=== PATIENT | male | born 1990 | race African-American/Black ===

== ENCOUNTER 2017-12-08 18:57 | Emergency (ER) | payer MEDICARE, MEDICAID ==
--- NOTE | 2017-12-08 20:01 | ED Physician Documentation ---
PD HPI LOWER EXT INJURY - Stated complaint Stated Complaint: GLF - KNEE PX - Chief complaint Chief Complaint: Ext Problem - History obtained from History obtained from: Patient - History of Present Illness PD HPI LOW EXT INJURY LOCATION: Left, Knee Type of injury: Fall (he tripped and fell, falls often per caregiver with him. Has CP and antalgic gait. Today fell and landed onto left knee, with pain and swelling. Denies other injury) Timing - onset: Today Timing - details: Abrupt onset, Still present Worsened by: Moving, Palpating Associated symptoms: Swelling. No: Weakness, Numbness Similar symptoms before: Has not had sx before Recently seen: Not recently seen Review of Systems Constitutional: denies: Fever, Chills Nose: denies: Rhinorrhea / runny nose, Congestion Throat: denies: Sore throat Cardiac: denies: Chest pain / pressure Respiratory: denies: Cough GI: denies: Abdominal Pain Neurologic: denies: Focal weakness, Numbness, Headache, Head injury PD PAST MEDICAL HISTORY - Past Medical History Past Medical History: Yes Neuro: Head injury - Past Surgical History Past Surgical History: Yes - Present Medications Home Medications: Ambulatory Orders Medication Instructions Recorded Confirmed Baclofen [Baclofen] 30 mg PO BID 12/08/17 12/08/17 - Allergies Allergies/Adverse Reactions: Allergies Allergy/AdvReac Type Severity Reaction Status Date / Time No Known Drug Allergies Allergy Verified 12/08/17 19:15 - Social History Does the pt smoke?: No Smoking Status: Never smoker Does the pt drink ETOH?: No Does the pt have substance abuse?: No PD ED PE NORMAL - Vitals Vital signs reviewed: Yes - General General: Alert and oriented X 3, No acute distress, Well developed/nourished - HEENT HEENT: Atraumatic - Respiratory Respiratory: Other (no chestwall tenderness) - Abdomen Abdomen: Soft, Non tender - Derm Derm: Normal color, Warm and dry - Extremities Extremities: Other (left knee with tenderness anteriorly and moderate effusion. No gross laxity with stress testing but limited. ) - Neuro Neuro: Alert and oriented X 3, No motor deficit, No sensory deficit Results - Vitals Vitals: Oxygen O2 Source Room air - Rads (name of study) left knee Radiology: Prelim report reviewed, EMP read contemporaneously (no fractures) PD MEDICAL DECISION MAKING - ED course Complexity details: considered differential (has effusion on left knee. He says mostly direct impact with fall and has okay xray. No gross laxity with stress testing but limited. COnsider some ligament injury too. Knee immobilizer had it feel better. ), d/w patient Departure - Departure Disposition: 01 Home, Self Care Clinical Impression: Knee effusion, left Accidental fall Qualifiers: Encounter type: initial encounter Qualified Code(s): W19.XXXA - Unspecified fall, initial encounter Knee contusion Qualifiers: Encounter type: initial encounter Laterality: left Qualified Code(s): S80.02XA - Contusion of left knee, initial encounter Condition: Stable Record reviewed to determine appropriate education?: Yes Instructions: ED Contusion Lower Ext, ED Effusion Knee Follow-Up: Lin Green PA-C [Primary Care Provider] - Comments: Use a knee brace when up and around for the next week until much better. Ibuprofen 400-600 mg 3 times a day for the next week, take it with food. Add Tylenol if needed for pain. The swelling in the knee should go down over several days and improve the pain quite a bit. Recheck if not better in about a week's time. There are no signs of fractures on the x-ray. There may be some ligamentous or muscle strain along with the bruising and they should be improved with the knee brace as well. Discharge Date/Time: 12/08/17 21:45
[2017-12-08] MEDS ORDERED: ACETAMINOPHEN 325 MG TABLET PO STA (20:11)
[2017-12-08 20:53] VITALS: BP 116/77
--- NOTE | 2017-12-08 20:54 | XRAY Report ---
EXAM: LEFT KNEE RADIOGRAPHY EXAM DATE: 12/08/2017 08:36 PM. CLINICAL HISTORY: Fall onto left knee, effusion and pain. COMPARISON: None. TECHNIQUE: 4 views. FINDINGS: Bones: Normal. No fractures or bone lesions. Joints: Normal. No effusion. No subluxations. Soft Tissues: Normal. No soft tissue swelling. IMPRESSION: Normal knee radiography. [facility] Referring Provider Line: [phone] SITE ID: [id number]
--- NOTE | 2017-12-08 20:54 | XRAY Preliminary Report ---
Exam: XR KNEE 4 VIEW LT IMPRESSION: Normal knee radiography. [facility] SITE ID: [id number]
== END 2017-12-08 21:45 | disposition home or self-care (01) ==
LOC: ED 18:57
DX: M25.462 Effusion, left knee (principal); S80.02XA Contusion of left knee, initial encounter; W01.0XXA Fall on same level from slipping, tripping and stumbling without subsequent striking against object, initial encounter
CPT/HCPCS: 73564; 99283; A9270

== ENCOUNTER 2019-05-20 11:09 | Outpatient (CLI) | payer MEDICARE, MEDICAID | END 2019-05-20 11:10 | disposition critical access hospital (66) | LOC: EMS 11:09 | PROVIDERS: ATTEND Surgery | DX: M25.511 Pain in right shoulder (principal); W03.XXXA Other fall on same level due to collision with another person, initial encounter; Y92.480 Sidewalk as the place of occurrence of the external cause | CPT/HCPCS: A0425; A0427 ==

== ENCOUNTER 2019-05-20 11:30 | Emergency (ER) | payer MEDICARE, MEDICAID ==
[2019-05-20] MEDS ORDERED: ONDANSETRON 4 MG/2 ML VIAL IVP STA (11:44)
[2019-05-20] MEDS ORDERED: HYDROmorphone 1 MG/ML CARPUJECT IVP STA (11:44)
[2019-05-20] MEDS ORDERED: PROPOFOL 200 MG/20 ML VIAL IVP ONE (12:26)
--- NOTE | 2019-05-20 12:58 | XRAY Report ---
Reason: dislocation Procedure Date: 05/20/2019 Accession Number: [id number] / [id number] Procedure: XR - Shoulder 3 View RT CPT Code: FULL RESULT: EXAM: RIGHT SHOULDER RADIOGRAPHY EXAM DATE: 05/20/2019 12:14 PM. CLINICAL HISTORY: Dislocation. Fall today, right shoulder pain. COMPARISON: None. TECHNIQUE: 3 views. FINDINGS: Bones/joints: There is anterior/inferior dislocation of the humeral head relative to the glenoid. Acromioclavicular joint alignment is within normal limits. There is an acute displaced fracture of the greater tuberosity of the humerus. Lateral displacement of the tuberosity fracture fragment measures 2.0 cm. The other visualized bones appear intact. No bone lesion. Soft tissues: The visualized hemithorax is unremarkable. There is soft tissue swelling adjacent to the proximal humerus. IMPRESSION: 1. Anterior/inferior dislocation of the humeral head relative to the glenoid. 2. Acute displaced fracture of the greater tuberosity of the humerus. [facility]
[2019-05-20] MEDS ORDERED: PROPOFOL 200 MG/20 ML VIAL IVP STA (13:16)
--- NOTE | 2019-05-20 13:25 | ED Physician Documentation ---
PD HPI UPPER EXT INJURY - Stated complaint Stated Complaint: GLF - Chief complaint Chief Complaint: Ext Problem - History obtained from History obtained from: Patient, Family - History of Present Illness Location: Right, Shoulder Type of injury: Fall Where injury occurred: Other ([employer]) Timing - onset: Today Timing - duration: Hours Timing - details: Abrupt onset, Still present Improved by: Rest, Immobilization Worsened by: Moving, Palpating Associated symptoms: No: Weakness, Numbness, Tingling Contributing factors: No: Anticoagulated Similar symptoms before: Has not had sx before Recently seen: Not recently seen - Additonal information Additional information: 28-year-old male with a remote history of TBI with left-sided spasticity was at a [employer] today when another student bumped into him and he fell. He fell onto his right hand and he complains of pain in his right shoulder. He has severe pain in his deformity consistent with dislocation. He has not had shoulder dislocation previously. Review of Systems Constitutional: denies: Fever Eyes: denies: Decreased vision Ears: denies: Ear pain Nose: denies: Rhinorrhea / runny nose, Congestion Respiratory: denies: Cough GI: denies: Vomiting PD PAST MEDICAL HISTORY - Past Medical History Past Medical History: Yes Neuro: Other Other Past Medical History: TBI - Past Surgical History Past Surgical History: Yes - Present Medications Home Medications: Ambulatory Orders Medication Instructions Recorded Confirmed Hydrocodone/Acetaminophen 1 - 2 each PO Q6H PRN #14 tablet 05/20/19 [Hydrocodon-Acetaminophen 5-325] - Allergies Allergies/Adverse Reactions: Allergies Allergy/AdvReac Type Severity Reaction Status Date / Time No Known Drug Allergies Allergy Verified 05/20/19 11:39 - Social History Does the pt smoke?: No Smoking Status: Never smoker Does the pt drink ETOH?: No Does the pt have substance abuse?: No - Immunizations Immunizations are current?: Yes PD ED PE NORMAL - Vitals Vital signs reviewed: Yes (hypertensive ) - General General: Well developed/nourished, Other (anxious appearing male with dysarthric speech) - HEENT HEENT: Atraumatic, PERRL, EOMI - Neck Neck: Supple, no meningeal sign, No bony TTP - Cardiac Cardiac: RRR, No murmur - Respiratory Respiratory: No respiratory distress, Clear bilaterally - Abdomen Abdomen: Soft, Non tender - Back Back: No CVA TTP, No spinal TTP - Derm Derm: Normal color, Warm and dry, No rash - Extremities Extremities: Other (There is deformity to the right shoulder consistent with dislocation and there is significant pain with any movement ) - Neuro Neuro: Other (There is existing contracture of the left upper extremity consistent with the left sided deficit indicated by his history. There is mildly dysarthric speech. ) Eye Opening: Spontaneous Motor: Obeys Commands Verbal: Oriented GCS Score: 15 - Psych Psych: Normal mood, Normal affect Results - Vitals Vitals: Vital Signs - 24 hr 05/20/19 05/20/19 05/20/19 11:34 12:35 12:36 Heart Rate 65 63 99 Respiratory 17 19 28 H Rate Blood Pressure 138/83 H 115/79 O2 Saturation 96 100 05/20/19 05/20/19 05/20/19 12:51 13:20 13:40 Heart Rate 102 H 86 70 Respiratory 15 22 17 Rate Blood Pressure 121/90 H 119/84 H 113/78 O2 Saturation 99 98 100 Oxygen O2 Source Room air - Rads (name of study) shoulder Radiology: Prelim report reviewed (Pressure: 1. Anterior/inferior dislocation of the humeral head relative to the glenoid. 2. Acute displaced fracture of the greater tuberosity of the humerus.), EMP read indepedently, See rad report shouder post reduction Radiology: EMP read contemporaneously (the joint is reduced and the fracture has improved alignment. ) Procedures - Reduction Body part reduced: Right, Shoulder Fracture or dislocation: Fracture dislocation Anesthesia: Dilaudid, Propofol Shoulder reduction technique: Traction - counter tract Reduction aftercare: NV intact, Xray confirms reduction, Sling, Patient tolerated well - Procedural sedation Sedation prep: Informed consent, Time out completed, PE performed, AHA 2 - mild disease, IV O2 monitor, ET CO2 monitor, RT present, Other (JEANIE Johnson present) Sedation medications: dilaudid, propofol (60mg) Patient status during sedation: Unresponsive, Vitals remained stable, Respiratory depression, Needed resp assistance. No: Hypoxia Sedation recovery: Recovered uneventfully, Back to baseline Time in sedation (Minutes): 8 (low dose with 60mg patient heavily sedated. ) PD MEDICAL DECISION MAKING - ED course Complexity details: reviewed old records, reviewed results, re-evaluated patient, considered differential, d/w patient, d/w family ED course: 28-year-old male with a prior history of TBI has had a fracture dislocation of his right shoulder we have been able to reduce it here in the emergency department with use of propofol after the administration of Dilaudid. The patient required a small dose of propofol and had deep sedation. He recovered and uneventfully and family will ensure follow-up with orthopedics.We did discuss the need to remove his arm from the sling frequently during the day for range of motion. Departure - Departure Disposition: 01 Home, Self Care Clinical Impression: Fracture dislocation of right shoulder joint Qualifiers: Encounter type: initial encounter Fracture type: closed Qualified Code(s): S42.91XA - Fracture of right shoulder girdle, part unspecified, initial encounter for closed fracture Condition: Stable Instructions: ED Dislocation Shoulder Redu, ED Fx Shoulder Follow-Up: [facility] [Provider Group] Prescriptions: Hydrocodone/Acetaminophen [Hydrocodon-Acetaminophen 5-325] 1 - 2 each PO Q6H PRN #14 tablet PRN Reason: pain Discharge Date/Time: 05/20/19 14:00
[2019-05-20 13:41] VITALS: BP 113/78
--- NOTE | 2019-05-21 07:29 | XRAY Report ---
Reason: post reduction Procedure Date: 05/20/2019 Accession Number: [id number] / [id number] Procedure: XR - Shoulder 2 View RT CPT Code: FULL RESULT: EXAM: RIGHT SHOULDER RADIOGRAPHY EXAM DATE: 05/20/2019 01:12 PM. CLINICAL HISTORY: Post reduction. COMPARISON: SHOULDER 3 VIEW RT 05/20/2019 11:48 AM. TECHNIQUE: 2 views. FINDINGS: Bones: Hill-Sachs fracture with improved alignment Joints: Interval reduction Soft tissues: The visualized hemithorax is unremarkable. No soft tissue swelling. IMPRESSION: 1. Interval reduction of shoulder dislocation. 2. Hill-Sachs fracture with improved alignment [facility]
== END 2019-05-20 14:00 | disposition home or self-care (01) ==
LOC: EDBD → ED 11:30
DX: S42.251A Displaced fracture of greater tuberosity of right humerus, initial encounter for closed fracture (principal); S43.014A Anterior dislocation of right humerus, initial encounter; W03.XXXA Other fall on same level due to collision with another person, initial encounter; Y92.833 Campsite as the place of occurrence of the external cause; Z87.820 Personal history of traumatic brain injury; R47.1 Dysarthria and anarthria; R25.2 Cramp and spasm
CPT/HCPCS: 23650; 73030; 94770; 96374; 99283; 99284; J1170

== ENCOUNTER 2019-06-04 | Emergency (ER) | payer MEDICARE, MEDICAID | END 2019-06-04 15:07 | disposition home or self-care (01) | DX: S01.01XA Laceration without foreign body of scalp, initial encounter (principal); W01.198A Fall on same level from slipping, tripping and stumbling with subsequent striking against other object, initial encounter; Y92.481 Parking lot as the place of occurrence of the external cause; Z23 Encounter for immunization; Z87.820 Personal history of traumatic brain injury | CPT/HCPCS: 12002; 90471; 90715; 99282; 99283; A9270 ==

== ENCOUNTER 2019-06-04 13:12 | Outpatient (CLI) | payer MEDICARE, MEDICAID | END 2019-06-04 13:13 | disposition EMS.NT | LOC: EMS 13:12 | PROVIDERS: ATTEND Surgery | DX: S01.01XA Laceration without foreign body of scalp, initial encounter (principal); W18.39XA Other fall on same level, initial encounter; W22.8XXA Striking against or struck by other objects, initial encounter; Y92.414 Local residential or business street as the place of occurrence of the external cause ==

== ENCOUNTER 2023-09-20 14:49 | Outpatient (CLI) | payer MEDICARE, MEDICAID ==
--- NOTE | 2023-09-20 15:39 | Sleep Patient Instructions ---
Sleep Center Visit Summary - Patient Visit Information Reason for Visit: Initial consult for evaluation of sleep disordered breathing and other sleep issues. - Patient Instructions Instructions Attached: Sleep Study, Sleep Study Home Monitor Additional Instructions: You will be completing a sleep study, either an in-lab polysomnography (PSG) or home sleep study (HST). You will follow-up in the sleep care office after the sleep study is completed to hear the results and talk about therapy, if needed. You will be called by our office staff to schedule this appointment, but you may contact us with any questions. - Clinic Information Contact: [facility] [address] [place] [id number] [email or web address] T: [phone]
--- NOTE | 2023-09-20 15:48 | SLEEP CARE CONSULTATION ---
Information from patient questionnaire entered by Katiana Laird. I have reviewed and concur with the information entered by Katiana Laird. This document represents the service I personally performed and the decisions made by me, Chary Singh ARNP. History of Present Illness Service Date and Time: 09/20/2023 1449 Reason for Visit: New patient Accompanied by: SANDRO Flaherty Chief Complaint: reports: Insomnia, Unrefreshed sleep, Snoring, Excessive daytime sleepiness, Frequent awakenings at night Date of Onset: YRS Usual bedtime: 11PM Time it takes to fall asleep: 1HR Snores at night: Yes Observed to quit breathing while asleep: No Number of times waking at night: 2-3 Reasons for waking at night: reports: Snoring, Pain, Bathroom, Other (NOISE). denies: Choking, Gasping for air Toss, Turn, or Twitch while sleeping: No Recalls having dreams: Yes Feels refreshed in the morning: No Morning headache: No Sleepy or fatigued during the day: Yes Ever fallen asleep while driving: No (N/A, he does not drive) Takes day naps: No Dreams during day naps: No Prior sleep studies: No Additional HPI information: I had the pleasure of seeing GLENN ANGEL (GENO) today regarding the possibility of him having a sleep disorder. His current complaints are insomnia, unrefreshed sleep, snoring, excessive daytime sleepiness and frequent night awakenings. He is accompanied by his mother, Krystina JO. She says two years ago he moved back home and is sharing a bedroom with another brother. His brother complains of his loud snoring and is waking up a lot at night. He had a TBI when he was [age] years old and he sees a neurologist regularly. His mother says he has told her now that he does not wake up feeling rested and is tired a lot. He is usually very busy but if he sits still he will fall asleep. He is a light sleeper and noises will wake him up easily. 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 Patient is Single and lives in [place]. Have you smoked in the past 12 months: No Alcohol use: No Caffeine use: No Family History Family history of sleep disordered breathing: No (unknown) Allergies and Home Medications Known drug allergies: No Drug allergies reviewed: Yes Home medication list reviewed: Yes Allergy and home medication list: Allergies No Known Drug Allergies Allergy (Verified 09/19/23 15:45) Home Medications Medication Instructions Recorded Confirmed Last Taken Type Calcium Carbonate [Calcium] See Rx Instructions .ROUTE .COMPLEX 09/20/23 09/20/23 Unknown History Cholecalciferol (Vitamin D3) See Rx Instructions .ROUTE .COMPLEX 09/20/23 09/20/23 Unknown History [Vitamin D3] Multivitamin See Rx Instructions .ROUTE .COMPLEX 09/20/23 09/20/23 Unknown History Review of Systems Weight gain over past 5 years: 5+ Cardiovascular: denies: high blood pressure Respiratory: denies: shortness of breath Gastrointestinal: denies: heartburn Neurological: reports: head trauma, gait or balance problems. denies: headaches Psychiatric: denies: anxiety, depression Ear/Nose/Throat: reports: tonsillectomy, wisdom teeth removed Musculoskeletal: reports: joint pain, neck pain, back pain, mobility problems Physical Exam Vital signs obtained and entered by: KATIANA Hicks MA Blood Pressure: 124/72 (LEFT ARM) Cuff size: regular Heart Rate: 75 O2 Saturation: 97 Height: 5 ft 2 in Weight: 117 lb 12.8 oz (with clothes/shoes) Body Mass Index: 21.5 BMI Classification: Normal Neck circumference: 14.25 Mouth and throat: narrow oropharynx Soft palate: long Hard palate: normal Uvula: normal Uvula visualization: 0% Mallampati Class IV Tongue: enlarged in size with teeth chung on lateral edges Tonsils: absent bilaterally Neck: normal w/o lymphadenopathy or thyromegaly Heart: regular rate and rhythm Lungs: clear bilaterally Impression and Plan 1. Suspected Obstructive Sleep Apnea-Hypopnea Syndrome, as suggested by a history of loud and irregular snoring, frequent awakening during the night, unrefreshed sleep and cognitive impairment. He history of TBI at age 75 years old. His mother and power of prosecuting attorney accompanied to his visit today but he understands and responds well to questioning. He does not get anxious in new situations and is comfortable with healthcare situations. He used to live on his own with a roommate and caregiver for 12 years. He does not need assistance to the restroom or to take any medications. He is mother, Krystina, says she can come in and help him to get settled and will be there to pick him up in the morning. She only lives 5 minutes from the sleep lab. Narrow oropharynx and obesity are common predisposing factors for obstructive sleep apnea-hypopnea syndrome. I recommend proceeding to polysomnography to confirm the diagnosis and to assess severity. If the patient has significant sleep disordered breathing, a manual CPAP titration study will also be performed to find the optimal treatment pressure. I informed the patient of what the sleep studies involve and after some discussion, obtained agreement to proceed from both patient and his POA. The pathophysiology of obstructive sleep apnea-hypopnea syndrome was discussed with the patient and health risks of cardiovascular and cerebrovascular disease if not treated. Risks of drowsy driving discussed in detail and patient advised to avoid long distance driving and to machine puller over at the first sign of drowsiness. Patient agreed to plan. * Schedule polysomnography. * Avoid long distance driving or driving when feeling sleepy. * Avoid alcohol, sedative and muscle relaxant around bedtime. * Review instructions provided by trained office staff on how to prepare for the sleep study. * Return for follow-up after sleep study completed. Plan: PSG Visit Type: In Office Time Spent with Patient (minutes): 44 Provider Statement: I spent 100% of the Face to Face Visit with the patient with greater than 50% spent counseling the patient and coordination of care.
[2023-09-20 16:02] VITALS: BP 124/72; O2SAT 97
== END 2023-09-20 14:50 | disposition home or self-care (01) ==
LOC: SC 14:49
PROVIDERS: ATTEND Nurse Practitioner Family
DX: G47.8 Other sleep disorders (principal); R06.83 Snoring; R41.89 Other symptoms and signs involving cognitive functions and awareness; Z87.820 Personal history of traumatic brain injury
CPT/HCPCS: 99203; G0463; 99212

== ENCOUNTER 2023-09-23 19:44 | Outpatient (CLI) | payer MEDICARE, MEDICAID | END 2023-09-23 19:45 | disposition home or self-care (01) | LOC: SC 19:44 | PROVIDERS: ATTEND Nurse Practitioner Family | DX: G47.8 Other sleep disorders (principal); R06.83 Snoring; R53.83 Other fatigue | CPT/HCPCS: 95810 ==

== ENCOUNTER 2023-10-11 10:01 | Outpatient (CLI) | payer MEDICARE, MEDICAID ==
--- NOTE | 2023-10-11 10:17 | Sleep Patient Instructions ---
Sleep Center Visit Summary - Patient Visit Information Reason for Visit: Sleep study follow-up - Patient Instructions Additional Instructions: Your sleep study today was negative for significant sleep disordered breathing. You were found to have episodes of snoring. There are different ways to control snoring including weight loss, oral devices made by a dentist or surgical options through ENT specialist. You should not use oral devices that do not fit properly because they can affect your bite. You should also check insurance coverage of oral devices for snoring because they may not be cover well. You may obtain a referral to an ENT specialist through your primary provider. Follow-up as needed. - Clinic Information Contact: [facility] [address] [place] [address] [email or web address] T: [phone]
--- NOTE | 2023-10-11 10:20 | SLEEP CARE CONSULTATION ---
Information from patient questionnaire entered by Katiana Laird. I have reviewed and concur with the information entered by Katiana Laird. This document represents the service I personally performed and the decisions made by , Chary Singh ARNP. History of Present Illness Service Date and Time: 10/11/2023 1001 Accompanied by: Mother SANDRO Initial [place] Sleepiness Scale score: 6 Current [place] Sleepiness Scale score: 8 (10/11/23) Additional HPI information: GLENN ANGEL JR returns with mother, Kyrstina, for follow up and results of the recently performed polysomnography. The patient was informed of the following findings: No significant sleep disordered breathing with an average AHI of 2.4 and alina oxygen saturation of 91%. I explained the pathophysiology behind obstructive sleep apnea. Patient does not have sleep apnea and was advised how weight gain could increase the risk of developing sleep apnea in the future. Patient has light snoring. Snoring can be treated with an oral appliance from a dentist. Advised to check insurance coverage. In addition, an ENT evaluation can be do to see if other treatment is indicated. Patient does not drink alcohol. Patient does not drive. Sleep Study - Results Type of Sleep Study: Polysomnography (COMPLETED 10/10/23) Prior sleep studies: No Polysomnography/Home Sleep Study results: IMPRESSION: The quality of the study is good. The patient had normal sleep efficiency. The sleep architecture was normal as well. Respiratory monitoring showed no significant sleep disordered breathing (AHI = 2.4) or hypoxia (alina oxygen saturation of 91%). The few respiratory events occurred mainly during REM sleep. The patient only slept supine during this study (supine AHI = 2.4; non-supine = 0.00). Snore was infrequent and light in intensity. There was no significant periodic leg movement of sleep. Cardiac rhythm was normal sinus rhythm without significant arrhythmia. No abnormal behavior (parasomnia) observed during the night. Allergies and Home Medications Known drug allergies: No Drug allergies reviewed: Yes Home medication list reviewed: Yes (no changes) Allergy and home medication list: Allergies No Known Drug Allergies Allergy (Verified 10/10/23 15:16) Review of Systems Review of systems same as previous: Yes (NO CHANGE) Physical Exam Vital signs obtained and entered by: KATIANA Hicks MA Blood Pressure: 126/70 (LEFT ARM) Cuff size: regular Heart Rate: 68 O2 Saturation: 99 Height: 5 ft 2 in Weight: 116 lb 9.6 oz Body Mass Index: 21.3 BMI Classification: Normal Impression and Plan 1. Snoring but no significant sleep disordered breathing. An oral appliance can also be used for snoring. This would require a dental consultation. Patient cautioned not to use other online appliances as can cause bite issues. A list of accredited dentists in area and one local dentist who makes oral appliances given. Patient is advised to check if insurance will cover. An ENT consult can also be helpful to determine if any other treatment is an option. He has a history of attention deficit and TBI with hemiparesis. * Maintain a healthy weight * Return as needed for follow up. Follow up with Sleep Care in: as needed Visit Type: In Office Time Spent with Patient (minutes): 14 Provider Statement: I spent 100% of the Face to Face Visit with the patient with greater than 50% spent counseling the patient and coordination of care.
[2023-10-11 10:21] VITALS: BP 126/70; O2SAT 99
== END 2023-10-11 10:02 | disposition home or self-care (01) ==
LOC: SC 10:01
PROVIDERS: ATTEND Nurse Practitioner Family
DX: R06.83 Snoring (principal)
CPT/HCPCS: 99212; G0463